=== PATIENT | male | born 1985 | race Caucasian/White ===

== ENCOUNTER → 2021-03-02 | Day surgery (SDC) | payer OTHER ==
[~2021-03-02] VITALS: Ht 180.3 cm; Wt 158.8 kg
[~2021-03-02] MED LIST: GABAPENTIN800 MG PO; SEROQUEL 25MG T25 MG PO; SUBOXONE 8 MG-1 EACH PO
[2021-03-02 10:17] LABS: BASOPHIL 0.5 % (0-2); EOSINOPHIL 2.8 % (0-5); HCT 42.9 % (42.0-52.0); HGB 14.5 g/dl (13.2-18.0); LYMPHOCYTE 40.2 % (15-48); MCH 30.7 pg (25.0-31.0); MCHC 33.8 g/dL (32.0-36.0); MCV 90.7 fL (78.0-100.0); MONOCYTE 8.1 % (0-12); MPV 10.6 fL (6.0-9.5); NRBC 0; PLT 220 K/uL (150-400); RBC 4.73 M/uL (4.70-6.00); RDW 12.8 % (11.5-14.0)
[2021-03-02 10:37] LABS: CREATININE 0.77 mg/dL (0.67-1.17); POTASSIUM 3.9 mmol/L (3.5-5.1)
== END | disposition home or self-care (01) ==
LOC: FAS 12-29 11:30
PROVIDERS: Anesthesiology; Oral & Maxillofacial Surgery
DX: K02.9 Dental caries, unspecified (principal); K04.7 Periapical abscess without sinus; E66.01 Morbid (severe) obesity due to excess calories; R94.31 Abnormal electrocardiogram [ECG] [EKG]; Z68.42 Body mass index [BMI] 45.0-49.9, adult; F41.9 Anxiety disorder, unspecified; I10 Essential (primary) hypertension; F17.210 Nicotine dependence, cigarettes, uncomplicated
CPT/HCPCS: D7140; D7210; 36415; 71045; 80048; 85025; 93005; J1100; J2001; J2250; J2405; J2704; J7120